=== PATIENT | male | born 1990 | race Caucasian/White ===

== ENCOUNTER 2023-06-25 17:56 | Emergency (ER) | payer OTHER ==
[~2023-06-25] VITALS: Ht 165.1 cm; Wt 68.0 kg
[2023-06-25 18:35] LABS: HEMATOCRIT 51.7 % (39.0-48.0); HEMOGLOBIN 16.8 g/dL (13-16.00); MEAN CELL VOLUME 97.2 fL (80.0-100.00); MEAN CORPUSCULAR HEMOGLOBIN 31.6 pg (27.00-32.0); MEAN CORPUSCULAR HGB CONC 32.5 g/dl (32.0-36.0); PLATELET COUNT 363 K/uL (150-450); RED BLOOD COUNT 5.32 M/uL (4.00-6.00); RED CELL DISTRIBUTION WIDTH 14.1 % (11.5-14.5)
[2023-06-25 18:47] LABS: INR 0.94; PARTIAL THROMBOPLASTIN TIME 23.6 SECONDS (22.0-34.0); PROTHROMBIN TIME 9.9 SECONDS (9.0-11.5)
[2023-06-25 18:49] LABS: ALBUMIN 4.1 gm/dL (3.4-5.0); BILIRUBIN TOTAL 0.33 mg/dL (0.3-1.2); CALCIUM 9.7 mg/dL (8.5-10.1); CREATININE SERUM 1.69 mg/dL (0.70-1.30); GFR 47.88; GLOBULINA 4.3 G/DL (2.4-3.5); POTASSIUM 4.01 mEq/L (3.5-5.1); TOTAL PROTEIN 8.4 gm/dL (6.4-8.2)
[2023-06-25 18:52] LABS: ABG PH 7.152 (7.35-7.45); ABG PO2 106.3 mmHg (80-100); ABG pCO2 31.2 mmHg (35-45); BASE EXCESS -16.9 mmol/l; BICARBONATE 10.7 mmol/l (23-25); SaO2 95.2 %; Tco2 11.6 mmol/l; allen test SATISFACTORY; o2 21 %; puncture site RADIAL RIGHT
[2023-06-25 19:38] LABS: URINE APPEARANCE Clear; URINE BILIRRUBIN Negative (NEGATIVE); URINE BLOOD Small; URINE COLOR Yellow; URINE GLUCOSE Negative (NEGATIVE); URINE LEUKOCYTE Negative; URINE NITRATE Negative; URINE UROBILINOGEN 0.2 E.U./dl
[2023-06-25 19:42] LABS: URINE BACTERIA 40.3 uL (0.0-1933); URINE EPITHELIAL CELLS 13.1 uL (0.0-38.8); URINE WBC 8.6 uL (0.0-23.2)
[2023-06-25 19:55] LABS: URINE PROTEIN 100 (NEGATIVE)
[2023-06-25 21:54] LABS: HEMATOCRIT 48.4 % (39.0-48.0); HEMOGLOBIN 16.7 g/dL (13-16.00); MEAN CELL VOLUME 91.5 fL (80.0-100.00); MEAN CORPUSCULAR HEMOGLOBIN 31.7 pg (27.00-32.0); MEAN CORPUSCULAR HGB CONC 34.6 g/dl (32.0-36.0); PLATELET COUNT 298 K/uL (150-450); RED BLOOD COUNT 5.29 M/uL (4.00-6.00); RED CELL DISTRIBUTION WIDTH 14.1 % (11.5-14.5)
[2023-06-25 22:21] LABS: ALBUMIN 3.9 gm/dL (3.4-5.0); BILIRUBIN TOTAL 0.55 mg/dL (0.3-1.2); CALCIUM 8.6 mg/dL (8.5-10.1); CREATININE SERUM 1.21 mg/dL (0.70-1.30); GFR 70.41; GLOBULINA 3.6 G/DL (2.4-3.5); POTASSIUM 3.5 mEq/L (3.5-5.1); TOTAL PROTEIN 7.5 gm/dL (6.4-8.2)
[2023-06-25 23:08] LABS: ABG PH 7.397 (7.35-7.45)
[2023-06-25 23:09] LABS: ABG PO2 81.7 mmHg (80-100); ABG pCO2 38.4 mmHg (35-45); BASE EXCESS -1.4 mmol/l; BICARBONATE 23.1 mmol/l (23-25); SaO2 95.9 %; Tco2 24.3 mmol/l; o2 21 %
[2023-06-25 23:10] LABS: allen test SATISFACTORY; puncture site RADIAL RIGHT
== END 2023-06-26 00:05 | disposition home or self-care (01) ==
LOC: ER 17:56
PROVIDERS: General Practice
DX: T75.1XXA Unspecified effects of drowning and nonfatal submersion, initial encounter (principal)